=== PATIENT | male | born 1995 | race Two or more races ===

== ENCOUNTER 2017-04-23 15:01 | Emergency (ER) | payer MEDICAID ==
[2017-04-23] MEDS ORDERED: IPRATROPIUM/ALBUTEROL 3 ML DEYVIAL ONE (15:11)
[2017-04-23] MEDS ORDERED: IPRATROPIUM/ALBUTEROL 3 ML DEYVIAL IH ONE (15:13)
[2017-04-23] MEDS ORDERED: predniSONE 20 MG TAB PO ONE (15:26)
[2017-04-23] MEDS ORDERED: ALBUTEROL 3 ML DEYVIAL IH ONE ×2 (15:26→16:14)
--- NOTE | 2017-04-23 15:30 | EDPHY ---
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 He states that over the last 2 months he has become increasingly short of breath. At triage she was wheezing and saturating 90% on room air. He states that he has had increased work of breathing with even mild exertion. He does not have any history of asthma. He smokes marijuana but not tobacco. He denies chest pain or palpitations. He has had a cough but no sore throat or runny nose. No fever. No headache. REVIEW OF SYSTEMS: Constitutional: denies: chills, fever, recent illness, recent injury EENTM: denies: blurred vision, double vision, nose congestion Respiratory: See HPI Cardiac: denies: chest pain, irregular heart rate, lightheadedness, palpitations Gastrointestinal/Abdominal: denies: abdominal pain, diarrhea, nausea, vomiting, blood streaked stools Genitourinary: denies: dysuria, frequency, hematuria, pain Musculoskeletal: denies: joint pain, muscle pain Skin: denies: lesions, rash, jaundice, bruising Neurological: denies: headache, numbness, paresthesia, tingling, dizziness, weakness Hematologic/Lymphatic: denies: blood clots, easy bleeding, easy bruising Immunologic/allergic: denies: HIV/AIDS, transplant EXAM: GENERAL: Well-appearing, well-nourished and in no acute distress. HEAD: Atraumatic, normocephalic. EYES: Pupils equal round and reactive to light, extraocular movements intact, sclera anicteric, conjunctiva are normal. ENT: TMs normal, nares patent, oropharynx clear without exudates. Moist mucous membranes. NECK: Normal range of motion, supple without lymphadenopathy or JVD. LUNGS: Bilateral wheezing and rhonchi. HEART: Regular rate and rhythm without murmurs, rubs or gallops. ABDOMEN: Soft, nontender, normoactive bowel sounds. No guarding, no rebound. No masses appreciated. BACK: No CVA tenderness, no spinal tenderness, step-offs or deformities EXTREMITIES: Normal range of motion, no pitting or edema. No clubbing or cyanosis. NEUROLOGICAL: Cranial nerves II through XII grossly intact. Normal speech, normal gait. 5/5 strength, normal movement in all extremities, normal sensation PSYCH: Normal mood, normal affect. SKIN: Warm, dry, normal turgor, no visible rashes or lesions. Source: Patient Exam Limitations: No limitations - Personal History Current Tetanus/Diphtheria Vaccine: Yes - Medical/Surgical History Hx Asthma: No Hx Chronic Respiratory Disease: Yes Hx Diabetes: No Hx Cardiac Disease: No Hx Renal Disease: No Hx Cirrhosis: No Hx Alcoholism: No Hx HIV/AIDS: No Hx Splenectomy or Spleen Trauma: No Other PMH: nerofibromatosis - Family History Significant Family History: No pertinent family hx - Social History Smoking Status: Former smoker Alcohol Use: Sober Drug Use: None Constitutional: Initial Vital Signs Temperature (C) 36.4 C 04/23/17 15:03 Heart Rate 121 H 04/23/17 15:03 Respiratory Rate 36 H 04/23/17 15:03 Blood Pressure 113/74 04/23/17 15:03 O2 Sat (%) 92 04/23/17 15:03 O2 Delivery Mode Room Air Allergies/Adverse Reactions: No Known Allergies Allergy (Unverified 04/23/17 15:03) Home Medications: Medication Instructions Recorded Albuterol [Proventil Inhaler] 1 - 2 puffs IH Q4H #1 mdi 04/23/17 predniSONE 60 mg PO DAILY #15 tab 04/23/17 Medical Decision Making - Diagnostics Imaging Results: Imaging Impressions Chest X-Ray 04/23/17 15:27 IMPRESSION: Normal chest x-ray. Imaging: Discussed imaging studies w/ biodiesel production associate Radiologist ED Course/Re-evaluation: 3:30 p.m. the patient received a DuoNeb at triage and is feeling much better. His wheezing is improved according to nursing staff. He is saturating 96% on room air. He does still have wheezing on exam. I will obtain x-ray and treat with steroids and re-evaluate. 4:50 p.m. the patient feels much better. He is saturating 97% even while ambulating. His lung sounds have improved. I will discharge him with a course of steroids as well as albuterol. Have paged his genetics doctors at [facility] twice but have not yet received a call back. 5:00 p.m. I discussed the case with Dr. Serrano from [facility]. She is agrees with the treatment a previously provided and will follow up with the patient. Differential Diagnosis: Partial list of the Differential diagnosis considered include but were not limited to; bronchitis, reactive airway disease, asthma and although unlikely based on the history and physical exam, I also considered COPD, pneumonia, tumor ,. I discussed these differential diagnoses and the plan with the patient as well as the usual and expected course. The patient understands that the diagnosis is provisional and that in medicine we are not always correct and that further workup is often warranted. Usual and customary warnings were given. All of the patient's questions were answered. The patient was instructed to return to the emergency department should the symptoms at all worsen or return, otherwise to followup with the physician as we discussed. - Data Points Medications Given: Discontinued Medications Albuterol (Proventil Neb) 3 ml IH EDNOW ONE Stop: 04/23/17 15:27 Last Admin: 04/23/17 15:30 Dose: 3 ml Albuterol (Proventil Neb) 3 ml IH EDNOW ONE Stop: 04/23/17 16:15 Last Admin: 04/23/17 16:14 Dose: 3 ml Albuterol/Ipratropium (Duoneb) 3 ml IH EDNOW ONE Stop: 04/23/17 15:14 Last Admin: 04/23/17 15:13 Dose: 3 ml Prednisone (Prednisone) 60 mg PO EDNOW ONE Stop: 04/23/17 15:27 Last Admin: 04/23/17 15:30 Dose: 60 mg Departure - Departure Disposition: Home, Routine, Self-Care Clinical Impression: Acute bronchitis Qualifiers: Bronchitis organism: unspecified organism Qualified Code(s): J20.9 - Acute bronchitis, unspecified Reactive airway disease Qualifiers: Asthma severity: moderate Asthma complication type: with acute exacerbation Condition: Fair Instructions: Acute Bronchitis (ED) Referrals: NONE *PRIMARY CARE P,. [Primary Care Provider] - As per Instructions Salty Chairez DO [Doctor of Osteopathy] - As per Instructions Prescriptions: Albuterol [Proventil Inhaler] 1 - 2 puffs IH Q4H #1 mdi predniSONE 60 mg PO DAILY #15 tab
[2017-04-23 16:12] VITALS: RESP 24
[2017-04-23] MEDS ORDERED: ALBUTEROL 3 ML DEYVIAL ONE (16:13)
[2017-04-23 16:52] VITALS: BP 105/63; PULSE 133; TEMP 97.7; O2SAT 97
== END 2017-04-23 17:05 | disposition home or self-care (01) ==
DX: J45.901 Unspecified asthma with (acute) exacerbation (principal); J20.9 Acute bronchitis, unspecified; Z87.891 Personal history of nicotine dependence